=== PATIENT | male | born 1945 | race Caucasian/White ===

== ENCOUNTER 2023-09-25 20:04 | Emergency (ER) | payer MEDICARE, OTHER ==
[~2023-09-25] VITALS: Ht 182.9 cm; Wt 84.8 kg
[2023-09-25] MEDS ORDERED: LIPITOR40 MG PO (20:29)
[2023-09-25] MEDS ORDERED: LOSARTAN POTAS100 MG PO (20:30)
[2023-09-25] MEDS ORDERED: NORVASC10 MG PO (20:31)
[2023-09-25] MEDS ORDERED: FLOMAX0.4 MG PO (20:32)
[2023-09-25] MEDS ORDERED: HYDROCHLOROTH12.5 MG PO (20:32)
[2023-09-25] MEDS ORDERED: PLAVIX75 MG PO (20:32)
[2023-09-25] MEDS ORDERED: CARVEDILOL12.5 MG PO (20:32)
[2023-09-25] MEDS ORDERED: EPLERENONE25 MG PO (20:33)
[2023-09-25] MEDS ORDERED: VITAMIN C1000 MG PO (20:33)
[2023-09-25] MEDS ORDERED: GLUCOSAMINE HC500 MG PO (20:34)
[2023-09-25] MEDS ORDERED: CALCIUM CITRAT200 MG (20:35)
[2023-09-25] MEDS ORDERED: OMEPRAZOLE20 MG PO (20:36)
[2023-09-25] MEDS ORDERED: VITAMIN D31 ML (20:37)
[2023-09-25 21:04] VITALS: BP 118/63
== END 2023-09-25 21:04 | disposition home or self-care (01) ==
LOC: ED 20:04
DX: R04.0 Epistaxis (principal); Z79.82 Long term (current) use of aspirin; Z79.02 Long term (current) use of antithrombotics/antiplatelets; Z79.899 Other long term (current) drug therapy
CPT/HCPCS: 30903; 99283-25